=== PATIENT | female | born 1980 | race American Indian/Alaskan Native ===

== ENCOUNTER 2018-11-06 18:29 | Emergency (ER) | payer OTHER ==
[2018-11-06 18:58] VITALS: BMI 32.3
[2018-11-06 19:00] VITALS: TEMP 98.6; O2SAT 100
--- NOTE | 2018-11-06 19:28 | ED PDOC ---
Arrival/HPI - General Chief Complaint: Female Genitourinary Time Seen by Provider: 11/06/18 19:04 - History of Present Illness Narrative History of Present Illness (Text): 11/06/18 19:20 38 year old nulligravida F presenting to the Emergency Room with complaint of persistent vaginal bleeding ongoing for the last week. The patient states she had been saturating more than 1 pad/hr going through 4-5 pads daily full of bright red blood intermixed with blood clots. The patient reports her LMP was on 10/19/18 in which she had bled for 1 week, stopped and resurged 1 week later and has not stopped bleeding since. 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 She reports having a positive family history of early menopause(her elder sister) as well as fibroids. Patient denies any use of OCPs or taking a home test. She reports intermittent abdominal cramping. She denies nausea/emesis, fevers, chills. dysuria, back pain, syncopal episodes, tingling, dizziness, shortness of breath of breath or headaches. Time/Duration: > week Symptom Course: Intermittent Quality: Cramping Severity Level: 6 Activities at Onset: Rest Context: Home Past Medical History - Provider Review Nursing Documentation Reviewed: Yes - Travel History Have you recently traveled outside [place] w/in the past 3 mons?: No - Infectious Disease Hx of Infectious Diseases: None - Psychiatric Hx Substance Use: No - Surgical History Other/Comment: Bariatric Surgery Family/Social History - Physician Review Nursing Documentation Reviewed: Yes Family/Social History: Other (fibroids & early menopause) Smoking Status: Heavy Smoker > 10 Cigarettes Daily Hx Alcohol Use: Yes Frequency of alcohol use: Socially Hx Substance Use: No Allergies/Home Meds Allergies/Adverse Reactions: Allergies No Known Allergies Allergy (Verified 11/06/18 18:58) Home Medications: Home Meds Medication Instructions Recorded Confirmed Omeprazole 20 mg PO DAILY 11/06/18 11/06/18 Review of Systems - Physician Review All systems were reviewed & negative as marked: Yes - Review of Systems Respiratory: absent: SOB, Cough Cardiovascular: absent: TAYLOR Gastrointestinal: Abdominal Pain. absent: Stool Changes, Constipation, Diarrhea Genitourinary Female: Hematuria, Vaginal Bleeding. absent: Dysuria, Frequency, Vaginal Discharge Musculoskeletal: absent: Arthralgias, Back Pain, Myalgias Physical Exam Vital Signs Reviewed: Yes Vital Signs Temp Pulse Resp BP Pulse Ox 11/06/18 18:59 98.6 F 85 17 127/70 100 Temperature: Afebrile Blood Pressure: Normal Pulse: Regular Respiratory Rate: Normal Appearance: Positive for: Well-Appearing, Non-Toxic, Comfortable Pain Distress: None Mental Status: Positive for: Alert and Oriented X 3 - Systems Exam Head: Present: Atraumatic, Normocephalic Pupils: Present: PERRL Extroacular Muscles: Present: EOMI Conjunctiva: Present: Normal Mouth: Present: Moist Mucous Membranes Neck: Present: Normal Range of Motion Respiratory/Chest: Present: Clear to Auscultation, Good Air Exchange. No: Respiratory Distress, Accessory Muscle Use Cardiovascular: Present: Regular Rate and Rhythm, Normal S1, S2. No: Murmurs Abdomen: Present: Tenderness, Normal Bowel Sounds. No: Distention, Peritoneal Signs Genitourinary/Pelvic Exam: Present: Normal External Genitalia, Vaginal Bleeding, Other (cervical os opened; no adnexal tenderness, no CMT. ). No: Vaginal Lesions, Adenexal Tenderness, Cervical Motion Tendernes Upper Extremity: Present: Normal Inspection. No: Cyanosis, Edema Lower Extremity: Present: Normal Inspection. No: Edema Neurological: Present: GCS=15, CN II-XII Intact, Speech Normal Skin: Present: Warm, Dry, Normal Color. No: Rashes Psychiatric: Present: Alert, Oriented x 3, Normal Insight, Normal Concentration Medical Decision Making ED Course and Treatment: 11/06/18 19:30 Impression 38 year old F w/ h/o miscarriage presenting to the Emergency department for persistent vaginal bleeding Differential Diagnoses Include But Is Not Limited To: --Spontaneous --Fibroids --Onset of Menses Plan --U preg --Urinalysis --Reassess & disposition Progress Notes 11/06/18 19:45 Urine confirmed as negative. Less likely concerned for ectopic due to negative test. Results shared with patient who acknowledges she must follow up with her [facility]. Disposition/Present on Arrival - Present on Arrival Any Indicators Present on Arrival: No History of DVT/PE: No History of Uncontrolled Diabetes: No Urinary Catheter: No History of Decub. Ulcer: No History Surgical Site Infection Following: None - Disposition Have Diagnosis and Disposition been Completed?: Yes Diagnosis: Dysfunctional uterine bleeding, Fibroid, uterine Disposition: HOME/ ROUTINE Disposition Time: 19:54 Patient Plan: Discharge Condition: STABLE Discharge Instructions (ExitCare): Heavy Periods (DC), Uterine Fibroids (DC), Myomectomy (DC) Print Language: GERMAN Additional Instructions: Please follow up with your [facility] in 1-2 days Prescriptions: Naproxen 500 mg PO BID #10 tab Referrals: Adina Bello MD [Medical Doctor] - Follow up with primary [facility] at [facility] [Outside] - Follow up with primary Forms: [employer] (Y[place]i), WORK NOTE
[2018-11-06 19:54] LABS: URINE BILIRUBIN NEGATIVE (NEGATIVE); URINE BLOOD LARGE (NEGATIVE); URINE GLUCOSE (UA) NEGATIVE (NEGATIVE); URINE LEUKOCYTE ESTERASE NEGATIVE Leu/uL (NEGATIVE); URINE PROTEIN 30 mg/dL (<30 mg/dL); URINE UROBILINOGEN 0.2 E.U./dL (<1 E.U./dL)
[2018-11-06 19:56] LABS: URINE APPEARANCE TURBID (CLEAR); URINE COLOR LIGHT RED (YELLOW)
[2018-11-06 20:12] LABS: URINE BACTERIA SMALL (NEG); URINE RBC TNTC /hpf (0-2); URINE WBC 25 - 30 /hpf (0-6)
[2018-11-06 20:24] VITALS: BP 124/72; PULSE 80; RESP 18
== END 2018-11-06 20:10 | disposition home or self-care (01) ==
LOC: ED 18:29
DX: N93.8 Other specified abnormal uterine and vaginal bleeding (principal); D25.9 Leiomyoma of uterus, unspecified